=== PATIENT | female | born 1945 | race Caucasian/White ===

== ENCOUNTER → 2019-07-20 11:40 | Oncology outpatient (ONC) | payer MEDICARE, SELFPAY ==
--- NOTE | 2019-06-08 13:29 | ONC.MSW ---
Description: Initial Navigation T/C Activity: Called pt to confirm that we received her referral, and clarified some questions re: the goal of her wanting to come here for a second opinion. She was initially diagnosed with lung cancer in 2018, did not have treatment due to low functional status, and has only had serial CT scans done since diagnosis. She and her family feel that she is stronger now and want to explore treatment options, thus wanting to meet with [facility] to determine options, if any. Explained my role in navigation, as well as availability for ongoing assistance for support, resources, questions and care coordination. She declines any immediate needs at this time. [facility] [employer] forwarded on to scheduling for f/u.
--- NOTE | 2019-06-26 14:15 | P.CONONC_ITS ---
History of Present Illness - Data of Consult Patient: new to practice Consult date: 06/26/19 Requesting Physician: Ngoc Schwarz Primary Care Provider: Ngoc Schwarz - Consult Narrative Reason for consult: Left lung adenocarcinoma Narrative: Shanta Jacobsen is a 73 year old female with long history of multiple sclerosis since childhood and restless leg syndrome. In 2018, while undergoing MR scan for her MS, it incidentally identified a new 2.5 x 2 x 1 cm irregular enhancing mass like lesion in the left upper lobe. She underwent follow up CT chest at [facility] on 02/01/2018 that confirmed the 2.9 x 2.2 cm nodular opacity with irregular margins in the anterior left upper lobe. On 02/22/2018, she was seen by Dr. Saavedra. On 05/05/2018, follow up CT chest w/contrast showed a 3.2 x 2.6 cm irregular nodular opacity in the left upper lobe. On 06/07/2018, she underwent PET scan that showed hypermetabolic left upper lobe lung mass, mild asymmetric activity in the left pulmonary hilum, and no other findings concerning for FDG avid metastatic disease. On 06/30/2018, Dr. Saavedra performed flexible bronchoscopy, left RATS, left upper lobectomy, and RATS mediastinal lymphadenectomy. Final pathology showed adenocarcinoma with acinar and lepidic growth paterns, and metastatic adenocarcinoma involving one of three hilar lymph nodes (1/3) with extranodal extension. The invasive tumor size was 3.7 x 3.2 x 2.8 cm, grade 2/4, PL2+, LVI-, margins negative, nodes from level 10, 7, 12, 11, 12, 9 and 5 were negative. Path stage was pT2a, pN1 (AJCC 8th ed). Post-operatively, Dr. Saavedra referred to Haley Walsh at [facility]. Per patient, chemotherapy was discussed with her but not recommended due to patient's co-morbidities including MS. Therefore, Shanta has been getting surveil aleksandr scan. Six months later on 01/04/2019, CT chest scan showed new subpleural nodules in the left lung measuring 4-5 mm. Repeat scan in 3 months on 04/06/2019 showed 3 pleural-based nodular opacities of the left lower lobe, 6 mm pulmonary nodule in the medias left lower lobe, 3 poeural-based pulmonary nodules in the lower pole of the left lower lobe measuring 4-5 cm, and reticular nodular thickening of anterior medial upper pole of the left lower lobe with the largest nodule 5 mm and the subpleural scarring in the anterior lateral left lower lobe unchanged. 3-4 mm pulmonary nodules were also seen in the right lung but unchanged., scan showed new nodules. Patient has been scheduled for repeat CT scan in in 2 weeks on 07/11/2018 at [facility]. On 06/14/2019, CT of abdomen and pelvis showed right sided hydronephrosis without obstructing mass or calculus detected with normal caliber ureter. Left renal pelviectasis without hydronephrosis and presacral mass of indeterminate etiology measuring 5.6 x 6.7 by by 5.4 cm. She reports no headache, no vision changes, no bone pain, no pain at the bottom, no chest pain, no breathing problems. She walks with a walker. She has good appetite. Her weight is pretty stable now. Recently on 06/06/2019, Shanta was evaluated by Ngoc Schwarz PA-C at [facility]. Iris requested a referral to [facility] as the complaint that the were not receiving any oncology evaluation since after the surgical evaluation. Patient currently is followed only by thoracic surgeon Dr. Saavedra. CC: Annalise Vaca MD Patient reports pain?: No Home Medications and Allergies Home Medications Medication Instructions Recorded Confirmed Type carbidopa-levodopa 3 tab PO BEDTIME 06/26/19 06/26/19 History oxybutynin chloride 7.5 mg PO BID 06/26/19 06/26/19 History Medical History - Medical, Surgical, Family History Medical History: Medical History (Last Updated 06/26/19 @ 14:50 by Annalise Vaca MD) Multiple sclerosis Restless leg syndrome Surgical History: Surgical History (Last Updated 06/26/19 @ 14:52 by Annalise Vaca MD) History of hip surgery - Social History Smoking Status: Former smoker Smoking packs per day: 1 Years smoked: 55 Quit Date: 12/10/18 Substance Use Type: does not use Alcohol Intake: never Review of Systems All systems PM: reviewed and no additional remarkable complaints except as stated Exam Vital signs: Last Vital Signs Temp 98.4 F 06/26/19 14:29 Pulse 62 06/26/19 14:29 Resp 18 06/26/19 14:29 BP 117/90 06/26/19 14:29 Pulse Ox 97 06/26/19 14:29 ECOG 1 Narrative: Gen: WD, thin, NAD, pleasant and cooperative, accompanied by her . HEENT: NCAT, EOMI, PERRLA, anicteric sclera. Neck: Supple, No palpable thyromegaly or lymphadenopathy. Respiratory: coarse breath sound, no wheezes, Cardiovascular: RRR, S1 and S2 normal, no M/G/R. Abdomen: Soft, NTND, BS normal, no palpable organomegaly Extremities: No LE pitting edema. Lymphatic: no palpable lymph nodes in the neck, axillae, or groins. Neurological: AOx3, CN II-XII grossly intact. No focal motor or sensory deficit. Psychiatric: Mood appropriate. Results - Labs Reviewed See HPI. Assessment and Plan (1) Cancer of left lung Overview: Left lung adenocarcinoma stage pT2a pN1 status post RATS left upper lobectomy and mediastinal lymphadnectomy on 06/30/2018. One of three hilar lymph nodes (1/3) was positive for metastasis with extranodal extension. No adjuvant chemotherapy due to concern of her MS. During follow up, new left lung pulmonary nodules as well as a pre-sacral mass were noted. Assessment: I explained to the patient that the pulmonary nodules and the nodules along the pleural lining are increasing in size slowly since surgery in Jun 2018. In addition the recent scan showed a presacral mass. All of these are indicating likely metastatic recurrence of her known adenocarcinoma of the left lung. I talked with the patient and her that I would recommend a PET scan to evaluate. If the pre-sacral lesion is hypermetabolic, I would recommend a CT- guided biopsy to obtain tissue samples to confirm the diagnosis as well as to perform molecular studies. However patient and patient's both said that they have scheduled a follow-up visit with Dr. Mccann on 07/14/2019. They're going to get a CT scan prior to the visit on 07/11/2019. They would like to follow-up with Dr. Saavedra before making decisions regarding PET scan. I agree with the patient and patient's Plan. Plan: 1. Follow up with Dr. Saavedra as scheduled for 07/14/2019 2. RTC on 07/20/2019 for follow up visit.
[2019-06-26 14:29] VITALS: BP 117/90; PULSE 62; RESP 18; TEMP 36.9; O2SAT 97
[2019-07-20 12:41] VITALS: BP 114/71; PULSE 87; RESP 18; TEMP 36.8; O2SAT 98
--- NOTE | 2019-07-20 12:43 | ONC.PN ---
PN -Subjective Interval history: ID/CC: 73 year old with lung cancer History of Present Illness Shanta Jacobsen is a 73 year old female with long history of multiple sclerosis since childhood and restless leg syndrome. In 2018, while undergoing MR scan for her MS, it incidentally identified a new 2.5 x 2 x 1 cm irregular enhancing mass-like lesion in the left upper lobe. She underwent follow up CT chest at [place] on 02/01/2018 that confirmed the 2.9 x 2.2 cm nodular opacity with irregular margins in the anterior left upper lobe. On 02/22/2018, she was seen by Dr. Saavedra. On 05/05/2018, follow up CT chest w/contrast showed a 3.2 x 2.6 cm irregular nodular opacity in the left upper lobe. On 06/07/2018, she underwent PET scan that showed hypermetabolic left upper lobe lung mass, mild asymmetric activity in the left pulmonary hilum, and no other findings concerning for FDG avid metastatic disease. On 06/30/2018, Dr. Saavedra performed flexible bronchoscopy, left RATS, left upper lobectomy, and RATS mediastinal lymphadenectomy. Final pathology showed adenocarcinoma with acinar and lepidic growth paterns, and metastatic adenocarcinoma involving one of three hilar lymph nodes (1/3) with extranodal extension. The invasive tumor size was 3.7 x 3.2 x 2.8 cm, grade 2/4, PL2+, LVI-, margins negative, nodes from level 10, 7, 12, 11, 12, 9 and 5 were negative. Path stage was pT2a, pN1 (AJCC 8th ed). Post-operatively, Dr. Saavedra referred to Haley Walsh at [place]. Per patient, chemotherapy was discussed with her but not recommended due to patient's co-morbidities including MS. Therefore, Shanta has been getting surveillance scan. Six months later on 01/04/2019, CT chest scan showed new subpleural nodules in the left lung measuring 4-5 mm. Repeat scan in 3 months on 04/06/2019 showed 3 pleural-based nodular opacities of the left lower lobe, 6 mm pulmonary nodule in the medial left lower lobe, 3 pleural-based pulmonary nodules in the lower pole of the left lower lobe measuring 4-5 cm, and reticular nodular thickening of anterior medial upper pole of the left lower lobe with the largest nodule 5 mm and the subpleural scarring in the anterior lateral left lower lobe unchanged. 3-4 mm pulmonary nodules were also seen in the right lung but unchanged., scan showed new nodules. On 06/14/2019, CT of abdomen and pelvis showed right sided hydronephrosis without obstructing mass or calculus detected with normal caliber ureter. Left renal pelviectasis without hydronephrosis and presacral mass of indeterminate etiology measuring 5.6 x 6.7 by by 5.4 cm. Treatment: Flexible bronchoscopy, left RATS, left upper lobectomy, and RATS mediastinal lymphadenectomy on 06/30/2018. Interim Events: Since her previous visit, patient was evaluated by Dr. Saavedra at [facility]. Repeat CT chest on July 11 2019 was done. The scan showed status post left upper lobectomy. No evidence of recurrence at the resection margin. Continued interval increase in size of several predominantly pleural based nodules throughout the remaining left lung concerning for ipsilateral pleural/parenchymal metastasis. In addition new nonspecific mild to moderate right hydronephrosis was noted. Patient presents here today for follow-up of the results. Clinically patient has been without any new signs or symptoms. She continues to complain pain at the sacrum area. - Patient Self-Reported Symptoms SR Genitourinary issues: Incontinence - Additional ROS All systems PM: reviewed and no additional remarkable complaints except as stated Home Medications and Allergies Home Medications Medication Instructions Recorded Confirmed Type carbidopa-levodopa 3 tab PO BEDTIME 06/26/19 07/20/19 History oxybutynin chloride 7.5 mg PO BID 06/26/19 07/20/19 History Exam Vital signs: Vital Signs Temp Pulse Resp BP Pulse Ox 07/20/19 12:41 98.3 F 87 18 114/71 98 Intake and Output 07/19/19 07/20/19 07/20/19 23:59 07:59 15:59 Other: Weight 43.5 kg Patient Weight 07/20/19 23:59 Weight 43.5 kg Narrative: Gen: WD, thin, NAD, pleasant and cooperative, accompanied by her . HEENT: NCAT, EOMI, PERRLA, anicteric sclera. Neck: Supple, No palpable thyromegaly or lymphadenopathy. Respiratory: coarse breath sound, no wheezes, Cardiovascular: RRR, S1 and S2 normal, no M/G/R. Abdomen: Soft, NTND, BS normal, no palpable organomegaly Extremities: No LE pitting edema. Lymphatic: no palpable lymph nodes in the neck, axillae, or groins. Neurological: AOx3, CN II-XII grossly intact. No focal motor or sensory deficit. Psychiatric: Mood appropriate. Results - Labs Reviewed Assessment and Plan (1) Cancer of left lung Overview: Left lung adenocarcinoma, pT2a pN1, status post RATS left upper lobectomy and mediastinal lymphadnectomy on 06/30/2018. One of three hilar lymph nodes (1/3) was positive for metastasis with extranodal extension. No adjuvant chemotherapy due to concern of her MS. During follow up, new left lung pulmonary nodules as well as a pre-sacral mass were noted. Assessment: During her previous visit, I recommended PET scan. However patient preferred to consult Dr. Saavedra first. Dr. Saavedra saw the patient on 07/18/2019. Repeat CT scan of the chest on 07/11/2019 showed interval increase in size of several predominantly pleural based nodules throughout the remaining left lung concerning for ipsilateral pleural/parenchymal metastasis. In addition new nonspecific mild to moderate right hydronephrosis was noted. Dr. Saavedra agreed with PET scan evaluation followed by CT-guided biopsy. Plan: 1. PET/CT 2. RTC in 2 weeks for follow up
--- NOTE | 2019-07-21 11:53 | ONC.SCHED ---
Sent order for PET/CT to [facility] as patient doesn't want to use a mobile unit.
--- NOTE | 2019-07-26 11:02 | ONC.SCHED ---
Spoke with Lindsey Estrada to initiate transfer of care. Msg/Task Medical Records to have them send records.
== END ==
PROVIDERS: PCP Physician Assistant Medical; Visit Provider Internal Medicine Hematology & Oncology
DX: C34.12 Malignant neoplasm of upper lobe, left bronchus or lung (principal); C77.1 Secondary and unspecified malignant neoplasm of intrathoracic lymph nodes; R91.8 Other nonspecific abnormal finding of lung field; G35 Multiple sclerosis; G25.81 Restless legs syndrome
CPT/HCPCS: 99204; 99214